=== PATIENT | male | born 1960 | race Caucasian/White ===

== ENCOUNTER 2016-09-19 16:38 | Emergency (ER) | payer OTHER ==
[2016-09-19 16:43] VITALS: RESP 16; TEMP 99; O2SAT 96
--- NOTE | 2016-09-19 16:57 | EDPHY ---
HPI/HX/ROS/PE/MDM Narrative: CHIEF COMPLAINT: Right sided abdominal pain HISTORY OF PRESENT ILLNESS: The patient is a 56-year-old male presenting with right sided abdominal pain that started 2 days ago. The patient drove here from [place] in three days. His pain developed on the last day of his drive. It started in the right upper quadrant and has now moved down to the right mid- quadrant. Since onset his pain has progressively worsened. His pain is exacerbated with movement and after eating. He has a history of kidney stones with stent placement on the right side. He states his pain feels different than previous kidney stone. He has no associated urinary complaints. No fever, chills, chest pain, shortness of breath, palpitations, vomiting, diarrhea, headache, or lightheadedness. REVIEW OF SYSTEMS: Aside from elements discussed in the HPI, a comprehensive 10-point review of systems was reviewed and is negative. PAST MEDICAL HISTORY: Sleeve gastrectomy, Kidney stones SOCIAL HISTORY: Nonsmoker. Rare alcohol use. VITAL SIGNS: Reviewed by me GENERAL: Well-developed, well-nourished, resting comfortably in no respiratory distress. HEENT: Atraumatic. Eyes: No icterus, no injection. Mouth: moist mucous membranes. No erythema or lesions. Neck: supple with no adenopathy. LUNGS: Clear to auscultation bilaterally, no wheezes, rhonchi or rales. CARDIAC: Regular rate and rhythm, no rubs, murmurs or gallops. ABDOMEN: Abdomen is large, Right upper quadrant tenderness BACK: No CVA tenderness. EXTREMITIES: No trauma. No edema. Range of motion is normal throughout. NEURO: Alert and oriented, grossly nonfocal. SKIN: Warm and dry, no rash. PSYCHIATRIC: Normal mentation, no agitation. Portions of this note were transcribed by a medical photographer. I personally performed a history, physical exam, medical decision making, and confirmed accuracy of information the transcribed note. ED Course: Patient presents with right sided abdominal pain. Plan for basic lab work. I offered pain medication, patient declined. CT abdomen/pelvis ordered. CT imaging results were called to me by the radiologist, No appendicitis, no gallstones, patient does have an area of inflammation adjacent and above the appendix which may represent epiploic appendagitis, nonspecific inflammatory changes near the bowel, early enteritis, diverticulitis. I do not believe the patient needs further evaluation or admission to the hospital. He will be placed on antibiotics as well as instructed to use nonsteroidals. I discussed findings with the patient. Plan to discharge home on antibiotics. Patient was given nonsteroidal instructions for continued pain. He will followup with his primary care physician on Sunday. MDM: After obtaining the patient's history and performing an examination, differential diagnosis considered included but was not limited to appendicitis, cholecystitis, gastritis, pancreatitis, kidney stones, urinary tract infections and other causes. - Data Points Imaging Results: Imaging Impressions Abdomen CT 09/19/16 17:29 Impression: Mild inflammatory change inferior to the tip of the liver adjacent to the ascending colon. Potentially this could be a subtle diverticulitis or epiploic appendagitis. No definite appendicitis. Results called and discussed with Lisa Iverson MD at 09/19/2016 18:09. Imaging: Discussed imaging studies w/ bi tester Radiologist Laboratory Results: Laboratory Results 09/19/16 16:55 09/19/16 16:55 09/19/16 09/19/16 09/19/16 17:55 16:55 16:55 WBC 10.64 10^3/uL H 10^3/uL (3.80-9.50) RBC 4.62 10^6/uL 10^6/uL (4.40-6.38) Hgb 15.2 g/dL g/dL (13.7-17.5) Hct 41.6 % % (40.0-51.0) MCV 90.0 fL fL (81.5-99.8) MCH 32.9 pg pg (27.9-34.1) MCHC 36.5 g/dL g/dL (32.4-36.7) RDW 12.7 % % (11.5-15.2) Plt Count 197 10^3/uL 10^3/uL (150-400) MPV 10.0 fL fL (8.7-11.7) Neut % (Auto) 71.5 % % (39.3-74.2) Lymph % (Auto) 19.5 % % (15.0-45.0) [place] % (Auto) 7.2 % % (4.5-13.0) Eos % (Auto) 0.8 % % (0.6-7.6) Baso % (Auto) 0.7 % % (0.3-1.7) Nucleat RBC Rel Count 0.0 % % (0.0-0.2) Absolute Neuts (auto) 7.61 10^3/uL H 10^3/uL (1.70-6.50) Absolute Lymphs (auto) 2.07 10^3/uL 10^3/uL (1.00-3.00) Absolute Monos (auto) 0.77 10^3/uL 10^3/uL (0.30-0.80) Absolute Eos (auto) 0.09 10^3/uL 10^3/uL (0.03-0.40) Absolute Basos (auto) 0.07 10^3/uL 10^3/uL (0.02-0.10) Absolute Nucleated RBC 0.00 10^3/uL 10^3/uL (0-0.01) Immature Gran % 0.3 % % (0.0-1.1) Immature Gran # 0.03 10^3/uL 10^3/uL (0.00-0.10) Sodium 142 mEq/L mEq/L (134-144) Potassium 4.2 mEq/L mEq/L (3.5-5.2) Chloride 108 mEq/L mEq/L (97-110) Carbon Dioxide 22 mEq/l mEq/l (22-31) Anion Gap 12 mEq/L mEq/L (8-16) BUN 9 mg/dL mg/dL (7-23) Creatinine 0.8 mg/dL mg/dL (0.7-1.3) Estimated GFR > 60 Glucose 150 mg/dL H mg/dL (70-100) Calcium 9.6 mg/dL mg/dL (8.5-10.4) Total Bilirubin 1.4 mg/dL mg/dL (0.1-1.4) Conjugated Bilirubin 0.4 mg/dL mg/dL (0.0-0.5) Unconjugated Bilirubin 1.0 mg/dL mg/dL (0.0-1.1) AST 30 IU/L IU/L (17-59) ALT 33 IU/L IU/L (21-72) Alkaline Phosphatase 74 IU/L IU/L (38-126) Total Protein 7.4 g/dL g/dL (6.3-8.2) Albumin 4.3 g/dL g/dL (3.5-5.0) Lipase 99.0 IU/L IU/L (23-300) Urine Color YELLOW Urine Appearance CLEAR Urine pH 6.0 (5.0-7.5) Ur Specific [place] 1.027 (1.002-1.030) Urine Protein NEGATIVE (NEGATIVE) Urine Ketones NEGATIVE (NEGATIVE) Urine Blood NEGATIVE (NEGATIVE) Urine Nitrate NEGATIVE (NEGATIVE) Urine Bilirubin NEGATIVE (NEGATIVE) Urine Urobilinogen NEGATIVE EU EU (0.2-1.0) Ur Leukocyte Esterase NEGATIVE (NEGATIVE) Urine Glucose NEGATIVE (NEGATIVE) Medications Given: Discontinued Medications Amoxicillin/Clavulanate Potassium (Augmentin 875mg) 875 mg PO EDNOW ONE PRN Reason: Protocol Stop: 09/19/16 18:33 Last Admin: 09/19/16 18:49 Dose: 875 mg Sodium Chloride (Ns) 1,000 mls @ 0 mls/hr IV ONCE ONE; Wide Open PRN Reason: Protocol Stop: 09/19/16 17:01 Last Admin: 09/19/16 17:08 Dose: 1,000 mls Ketorolac Tromethamine (Toradol) 30 mg IVP EDNOW ONE Stop: 09/19/16 18:19 Last Admin: 09/19/16 18:35 Dose: 30 mg Ondansetron HCl (Zofran) 4 mg IVP EDNOW ONE Stop: 09/19/16 18:19 Last Admin: 09/19/16 18:30 Dose: 4 mg General Time Seen by Provider: 09/19/16 16:47 Initial Vital Signs: Initial Vital Signs Temperature (C) 37.2 C 09/19/16 16:39 Heart Rate 93 09/19/16 16:39 Respiratory Rate 16 09/19/16 16:39 Blood Pressure 145/83 H 09/19/16 16:39 O2 Sat (%) 96 09/19/16 16:39 O2 Delivery Mode Room Air Allergies/Adverse Reactions: No Known Allergies Allergy (Unverified 09/19/16 16:43) Home Medications: Medication Instructions Recorded Amoxicillin/Clavulanate Pot 875 mg PO BID #14 tab 09/19/16 [Augmentin 875 MG TAB (*)] Ondansetron Odt [Zofran Odt 4 mg 4 mg PO Q6 PRN #8 tab 09/19/16 (RX)] Departure - Departure Disposition: Home, Routine, Self-Care Clinical Impression: Abdominal pain Qualifiers: Abdominal location: right upper quadrant Qualified Code(s): R10.11 - Right upper quadrant pain Condition: Good Instructions: Ondansetron (By mouth), Acute Abdominal Pain (ED) Additional Instructions: Your CT imaging today revealed mild inflammatory change inferior to the tip of the liver adjacent to the ascending colon. Potentially this could be a subtle diverticulitis or epiploic appendagitis. Please followup with your primary care physician on Sunday regarding these findings. Please take full course of Augmentin as directed, (twice daily for the next 7 days). I recommend Ibuprofen (Motrin, Advil) or Naproxen Sodium (Aleve) for pain and anti-inflammatory effects for the next 24-48 hours. You may take either one, but do not take both. Your dose is: Ibuprofen 600 mg every 6-8 hours with food. OR Naproxen Sodium ( Aleve) 220 mg every 12 hours. For severe pain you may take your Oxycodone as prescribed. Followup with your primary care physician on Sunday. Return to the Emergency Department if your pain does not improve or worsens despite these treatments, he developed vomiting, fevers, diarrhea, or other concerns. Referrals: Johanna Bates MD [Primary Care Provider] - 3-4 days, if not improved Prescriptions: Amoxicillin/Clavulanate Pot [Augmentin 875 MG TAB (*)] 875 mg PO BID #14 tab Ondansetron Odt [Zofran Odt 4 mg (RX)] 4 mg PO Q6 PRN #8 tab PRN Reason: Nausea Report Scribed for: Lisa Iverson Report Scribed by: Teresa Ortega Date of Report: 09/19/16 Time of Report: 16:57
[2016-09-19] MEDS ORDERED: NS 1,000 ML IV ONE (17:00)
[2016-09-19 17:08] LABS: % IMMATURE GRANULYOCYTES 0.3 % (0.0-1.1); ABSOLUTE IMMATURE GRANULOCYTES 0.03 10^3/uL (0.00-0.10); ADD DIFF? NO; ADD MORPH? NO; ADD SCAN? NO; ATYPICAL LYMPHOCYTE FLAG 0 (0-99); FRAGMENT RBC FLAG 0 (0-99); HEMATOCRIT 41.6 % (40.0-51.0); HEMOGLOBIN 15.2 g/dL (13.7-17.5); LEFT SHIFT FLG 0 (0-99); LIPEMIA HEMOLYSIS FLAG 90 (0-99); MEAN CELL HEMOGLOBIN 32.9 pg (27.9-34.1); MEAN CELL HEMOGLOBIN CONCENTR. 36.5 g/dL (32.4-36.7); PLATELET CLUMPS FLAG 20 (0-99); PLATELET COUNT 197 10^3/uL (150-400); RED BLOOD CELL COUNT 4.62 10^6/uL (4.40-6.38); RED CELL DISTRIBUTION WIDTH 12.7 % (11.5-15.2)
[2016-09-19 17:26] LABS: ALANINE AMINOTRANSFERASE 33 IU/L (21-72); ALBUMIN 4.3 g/dL (3.5-5.0); ALKALINE PHOSPHATASE 74 IU/L (38-126); ANION GAP 12 mEq/L (8-16); ASPARTATE AMINOTRANSFERASE 30 IU/L (17-59); BILIRUBIN,TOTAL 1.4 mg/dL (0.1-1.4); BILIRUBIN-CONJUGATED 0.4 mg/dL (0.0-0.5); CALCIUM 9.6 mg/dL (8.5-10.4); CARBON DIOXIDE 22 mEq/l (22-31); CHLORIDE 108 mEq/L (97-110); CREATININE 0.8 mg/dL (0.7-1.3); GLOMERULAR FILTRATION RATE > 60; GLUCOSE 150 mg/dL (70-100); POTASSIUM 4.2 mEq/L (3.5-5.2); SODIUM 142 mEq/L (134-144); TOTAL PROTEIN 7.4 g/dL (6.3-8.2)
[2016-09-19] MEDS ORDERED: IOPAMIDOL (ISOVUE 370) 100 ML BTL IV ONE (17:32)
[2016-09-19 18:07] LABS: COLOR YELLOW; LEUKOCYTE ESTERASE,URINE NEGATIVE (NEGATIVE); NITRITE,URINE NEGATIVE (NEGATIVE)
[2016-09-19] MEDS ORDERED: ONDANSETRON 4 MG/2 ML VIAL IVP ONE (18:18)
[2016-09-19] MEDS ORDERED: KETOROLAC 30 MG/1 ML SDV IVP ONE (18:18)
[2016-09-19] MEDS ORDERED: AMOXICILLIN/CLAVULANATE POT 875/125 MG TAB PO ONE (18:32)
[2016-09-19] MEDS ORDERED: ONDANSETRON 4MG PREPACK#2 BTL TAKEHOME ONE ×2 (18:42→18:43)
[2016-09-19 18:55] VITALS: BP 140/78; PULSE 75
== END 2016-09-19 18:58 | disposition home or self-care (01) ==
DX: R10.11 Right upper quadrant pain (principal); E86.9 Volume depletion, unspecified; Z90.3 Acquired absence of stomach [part of]
CPT/HCPCS: 96374; J1885; J2405; Q9967